=== PATIENT | female | born 1960 | race Caucasian/White ===

== ENCOUNTER 2017-12-17 13:32 | Inpatient (IN) | payer OTHER ==
[~2017-12-17] VITALS: Ht 165.1 cm; Wt 106.1 kg
[2017-12-17 13:35] VITALS: BP 136/73
[2017-12-17] MEDS ORDERED: DOXYCYCLINE 10100 M1 PO (13:40)
[2017-12-17 14:33] LABS: ABSOLUTE EOSINOPHILS 0.1 thou/uL (0.0-0.7); ABSOLUTE LYMPHOCYTES 1.4 thou/uL (0.8-5.3); ABSOLUTE MONOCYTES 0.2 thou/uL (0.0-1.2); ABSOLUTE NEUTROPHILS 3.3 thou/uL (1.6-8.1); BASOPHILS 0.3 %; EOSINOPHILS 1.6 %; HEMATOCRIT 45.6 % (37.0-47.0); HEMOGLOBIN 14.8 gm/dL (12.0-15.0); LYMPHOCYTES 27.5 %; MCH 29.2 pg (26.0-34.0); MCHC 32.6 g/dL (28.0-37.0); MCV 89.8 fL (80.0-100.0); MONOCYTES 4.6 %; MPV 8.5 fl. (7.2-11.1); NUCLEATED RBCS 0 /100WBC; PLATELET COUNT* 211 thou/uL (150-400); RBC 5.07 mil/uL (4.20-5.00); RDW-CV 13.7 % (10.5-14.5)
[2017-12-17 14:42] LABS: ANION GAP 6 mmol/L (7-16); BUN 11 mg/dL (7-18); CALCIUM 9.2 mg/dL (8.5-10.1); CHLORIDE 103 mmol/L (98-107); CO2 30 mmol/L (21-32); CREATININE 0.8 mg/dL (0.6-1.3); GLUCOSE 138 mg/dL (70-99); POTASSIUM 3.4 mmol/L (3.5-5.1); SODIUM 139 mmol/L (136-145)
[2017-12-17 14:54] LABS: ALBUMIN 3.3 g/dL (3.4-5.0); ALKALINE PHOSPHATASE 92 U/L (46-116); NT-PRO BRAIN NAT PEPTIDE 428 pg/mL (<300); SGOT 34 U/L (15-37); SGPT 45 U/L (30-65); TOTAL BILIRUBIN 0.5 mg/dL (<0.1-1.0); TOTAL PROTEIN 7.9 g/dL (6.4-8.2); TROPONIN-I LEVEL <0.06 ng/mL (<0.06)
[2017-12-17 16:02] LABS: INFLUENZA A ANTIGEN None Detected (None Detect); INFLUENZA B ANTIGEN None Detected (None Detect)
[2017-12-17 16:20] VITALS: BP 133/68
[2017-12-17 16:31] LABS: BE -0.1 mmol/L (-2 to +3); HCO3 25.3 mmol/L (22.0-26.0); PCO2 44.2 mmHg (35.0-45.0); PO2 85.6 mmHg (75.0-100.0); pH 7.376 (7.340-7.450)
[2017-12-17] MEDS ORDERED: IBUPROFEN 600600 M1 PO (18:11)
[2017-12-17] MEDS ORDERED: MUCINEX1200 MG PO (18:13)
[2017-12-17] MEDS ORDERED: TYLENOL325 MG PO (18:15)
--- NOTE | 2017-12-17 18:15 | NUR ---
RECEIVED REPORT FROM HEADSTART TEACHER MIKAELA. PT ARRIVED TO UNIT AT 1640 VIA GURNEY AND ER STAFF. PT IS A & O X4 AND ABLE TO COMMUNICATE NEEDS TO STAFF. VS OBTAINED. ASSESSMENT COMPLETE. ADMISSION HISTORY COMPLETE. ADMISSION EDUCATION COMPLETE. PT IS ON 2L O2 NC, SATS 96%. SR BBB ON TELE MONITOR. NON-PRODUCTIVE COUGH, STRESS INCONTINENCE. MEAL TRAY ARRIVED, CONSUMED 50%, STATING THAT JELLO IS PREFERRED TO MEAL. SKIN ASSESSMENT FINDS NO WOUNDS, SKIN INTACT, NO EDEMA. NEEDED ITEMS AND CALL LIGHT WITHIN REACH OF PT. EDUCATION GIVEN AND FALL PROTOCOL SIGNED, PT AGREES TO CALL NURSING STAFF PRIOR TO GETTING OUT OF BED.
[2017-12-17 21:04] VITALS: BP 151/79
[2017-12-17 23:48] VITALS: BP 150/74
[2017-12-18 04:05] VITALS: BP 145/68
--- NOTE | 2017-12-18 04:38 | NUR ---
Pt voiced concerns about interaction with staff member toward beginning of shift, and has requested that she not enter her room again. Pt reports that she is breathing & feeling much better since arrival to ED. Inquired about antibiotics, steroids, and respiratory treatments; and why the antibiotic she was prescribed on Monday did not Pt reports feeling "much better" after receiving IV steroids, respiratory treatments, and IV antibiotics. Inquired about the apparent ineffectiveness of the antibiotic (doxycycline) she was prescribed on Monday by her PCP. At time of note pt asleep. VSS, on 2L O2 per NC. Lt wheezes to ascultation. Will continue to monitor.
[2017-12-18 05:11] LABS: ABSOLUTE BASOPHILS 0.1 thou/uL (0.0-0.2); ABSOLUTE LYMPHOCYTES 0.4 thou/uL (0.8-5.3); ABSOLUTE NEUTROPHILS 2.6 thou/uL (1.6-8.1); BASOPHILS 2.9 %; HEMATOCRIT 39.7 % (37.0-47.0); LYMPHOCYTES 13.6 %; MCH 29.4 pg (26.0-34.0); MCHC 35.4 g/dL (28.0-37.0); MONOCYTES 0.5 %; MPV 7.6 fl. (7.2-11.1); NUCLEATED RBCS 0 /100WBC; PLATELET COUNT* 221 thou/uL (150-400); RBC 4.77 mil/uL (4.20-5.00); RDW-CV 13.1 % (10.5-14.5); WBC 3.2 thou/uL (4.0-11.0)
[2017-12-18 05:38] LABS: MCV 83.2 fL (80.0-100.0)
[2017-12-18 05:46] LABS: CALCIUM 9.1 mg/dL (8.5-10.1); CREATININE 0.6 mg/dL (0.6-1.3)
[2017-12-18 05:51] LABS: POTASSIUM 4.4 mmol/L (3.5-5.1)
--- NOTE | 2017-12-18 07:00 | NUR ---
Pt voiced concern regarding interaction with staff member early in shift. Pt requesting that the staff member not return to her room. Pt reports that her breathing has improved significantly since arrival to ED. Pt inquired about her medications; and informed of antibiotics, steroids, and breathing treatments as well as DVT prevention. Pt reports she did not get much sleep overnight due to interruptions (nursing, RT, and phlebotomy) as well as the sound of doors shutting (e.g. the galley across the lizama from pt's room). VSS. Lt wheezes with ascultation of breath snds. Will continue to monitor.
[2017-12-18 08:00] VITALS: BP 133/73
--- NOTE | 2017-12-18 10:23 | EKG ---
[place] [address] ELECTROCARDIOGRAM REPORT Name: ROXY PENNY Room: [place] [address] ADM IN [facility]#: [id number] Admission: 12/17/17 Attend Phys: Kilo Packer MD Discharge: Date of : 64 Report #: [id number] THIS REPORT FOR: //name// [facility] ED Test Date: 2017-12-17 Test Time: 13:43:31 Pat Name: ROXY PENNY Department: Room: [facility] Gender: F Associate Director Of Biostatistics: Richard BARR : 1960 Requested By: North Enriquez Order Number: [id number] MD: Paco Meier Measurements Intervals [place] Rate: 78 P: 37 MO: 196 QRS: 93 QRSD: 167 T: 55 QT: 399 QTc: 455 Interpretive Statements Sinus rhythm Right bundle branch block No previous ECG available for comparison Electronically Signed On 12-18-2017 10:23:35 CAMPUS COORDINATOR by Paco Meier [email or web address] <ELECTRONICALLY SIGNED> By: Paco Meier MD, [facility] 12/18/17 1023 1343 1343 Paco Meier MD, FACC /EPI
--- NOTE | 2017-12-18 10:51 | NUR ---
PAITNET RESTING IN BED. 2L SUPPLEMENTAL O2 TO MAINTAIN SATURATION. LUNGS DIMINISHED AND WHEEZY. RT ON BOARD. IV ABX INFUSING PER ORDERS. AOX4 AND COORPERATIVE. UP WITH STANDBY ASSISTANCE.
[2017-12-18 12:22] VITALS: BP 123/59
--- NOTE | 2017-12-18 13:49 | NUR ---
MET WITH PT TO DISCUSS HOME SITUATION/DC PLANNING. PT LIVES IN [facility], HER SON WHO JUST GRADUATED FROM [place] IS LIVING WITH HER NOW. 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 USES NO EQUIPMENT AND DENIES DC NEEDS. 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
[2017-12-18 16:00] VITALS: BP 138/76
[2017-12-18 19:45] VITALS: BP 144/85
[2017-12-19] VITALS: BP 134/70
--- NOTE | 2017-12-19 03:15 | NUR ---
ASSUMED CARE OF PT AT 1900. PT IS ALERT AND ORIENTED. VSS. PERRLA. NO COMPLAINTS OF PAIN. PT IS IN SINUS RYTHM WITH A PROLONGED ID INTERVAL. PT IS SLEEPING COMFORTABLY IN BED. RESPIRATIONS ARE EVEN AND NONLABORED. WILL CONTINUE TO MONITER PT.
[2017-12-19 04:00] VITALS: BP 134/53
--- NOTE | 2017-12-19 07:57 | CON ---
[address] [address] CONSULTATION Name: ROXY PENNY Room: [place] [address] ADM IN [facility].R.#: [id number] Admission: 12/17/17 Attend Phys: Kilo Packer MD Discharge: Date of : 64 Report #: [id number] THIS REPORT FOR: //name// CC: Kilo Packer [facility] physician/PCP DATE OF SERVICE: 12/18/2017 ATTENDING PHYSICIAN: Kilo Packer M.D. REASON FOR EVALUATION: Pneumonitis, probably with antecedent influenza. HISTORY OF PRESENT ILLNESS: Chart reviewed, patient examined. This 57-year-old woman with probable COPD, who describes a biphasic illness. She had an illness starting within the last couple of weeks, flu-like symptoms, did have cough which is productive, was evaluated and was found to have negative flu, treated with doxycycline. At some point, she thought she had improved. Only over the course of last 2-3 days prior to admission, had onset of fevers, worsening chest pain and discomfort, progressive shortness of breath, cough, although has still been minimally productive. Blood cultures collected are sterile thus far. MEDICATIONS: Include ceftriaxone, azithromycin, levothyroxine, pantoprazole, methylprednisolone, enoxaparin, ipratropium, albuterol inhaler, p.r.n. analgesics, antiemetics. ALLERGIES: None known. PAST MEDICAL HISTORY: Suspected chronic obstructive pulmonary disease, previous hysterectomy, cholecystectomy, tonsillectomy. SOCIAL HISTORY: Former smoker. No ethanol, no illicit drug use. FAMILY HISTORY: Noncontributory. REVIEW OF SYSTEMS: As above. Denies any significant gastrointestinal-related complaints. He has had some anorexia. PHYSICAL EXAMINATION: GENERAL: She appears ill, not overly toxic. She is not having paroxysms of coughing while I was there at least. VITAL SIGNS: Temperature 98.4, pulse 84, respirations 16, blood pressure 133/73. SKIN: Warm, dry, no rashes. NECK: Supple. LUNGS: Few scattered coarse breath sounds. Nothing for consolidation. HEART: Regular. I do [place] [address] CONSULTATION Name: PENNYROXY Evangelina Room: [address] IN [facility]#: [id number] Admission: 12/17/17 Attend Phys: Kilo Packer MD Discharge: Date of : 64 Report #: [id number] ABDOMEN: Soft, nontender, nondistended. EXTREMITIES: No cyanosis. GENITOURINARY AND RECTAL: Deferred. LABORATORY DATA: As noted above. Blood cultures sterile thus far. Electrolytes: Sodium 143, potassium 4.4, chloride 105, bicarbonate 28, BUN and creatinine 9 and 0.6, glucose of 165. Estimated GFR 104. CBC: White count of 3.2, H and H 14.0 and 39.7, platelets of 221. ABGs: PH 7.376, pCO2 of 44.2, pO2 of 85.6 on 2 liters. Influenza antigen was negative. Liver functions unremarkable. Albumin of 3.3, total protein 7.9. Lactic acid 1.6. Chest x-ray showed left medial upper lobe infiltrate. ASSESSMENT: Pneumonitis, suspect probably secondary to bacterial pneumonitis in the setting of antecedent influenza given her history. We will continue antimicrobial therapy, presume a bacterial pathogen at this point and see how she responds clinically. We will try to obtain a sputum from her, although there will be significant opportunity to wean off support as allowed. <ELECTRONICALLY SIGNED> By: Yonatan Shine MD 12/19/17 0757 1048 1309Josejosé manuel Shine MD /nt
[2017-12-19 08:00] VITALS: BP 124/62
[2017-12-19 11:33] VITALS: BP 126/61
[2017-12-19 12:38] LABS: HEMATOCRIT 43.4 % (37.0-47.0); HEMOGLOBIN 13.9 gm/dL (12.0-15.0); MCH 29.2 pg (26.0-34.0); MPV 8.3 fl. (7.2-11.1); NUCLEATED RBCS 0 /100WBC; PLATELET COUNT* 242 thou/uL (150-400); RBC 4.77 mil/uL (4.20-5.00); RDW-CV 14.3 % (10.5-14.5)
[2017-12-19 12:40] LABS: WBC 11.9 thou/uL (4.0-11.0)
[2017-12-19 13:02] LABS: CREATININE 0.8 mg/dL (0.6-1.3); POTASSIUM 3.3 mmol/L (3.5-5.1)
[2017-12-19 14:04] LABS: ABSOLUTE LYMPHOCYTES 0.7 thou/uL (0.8-5.3); ABSOLUTE MONOCYTES 0.1 thou/uL (0.0-1.2); ABSOLUTE NEUTROPHILS 11.1 thou/uL (1.6-8.1); ATYPICAL LYMPHS 1 %; METAMYELOCYTES 1 %; PLATELET ESTIMATE ADEQUATE
[2017-12-19 15:46] VITALS: BP 139/70
--- NOTE | 2017-12-19 19:15 | NUR ---
PATIENT WAS TRANSFERRED TO ROOM 117 AT 18:45. VITAL SIGNS STABLE AND PAITNET IN NOAPPARENT DISTRES AT HTIS TIME. HOURLY ROUNDING COMPLETED FOR PAITNET SAFETY.
[2017-12-19 21:00] VITALS: BP 137/72
[2017-12-20] VITALS: BP 154/94
[2017-12-20 04:25] VITALS: BP 138/76
[2017-12-20 04:33] LABS: HEMATOCRIT 38.5 % (37.0-47.0); HEMOGLOBIN 13.4 gm/dL (12.0-15.0); MCH 29.3 pg (26.0-34.0); MCHC 34.7 g/dL (28.0-37.0); MPV 8.2 fl. (7.2-11.1); RBC 4.57 mil/uL (4.20-5.00); WBC 10.4 thou/uL (4.0-11.0)
[2017-12-20 04:38] LABS: APTT 23.3 Seconds (25.0-31.3); PROTIME 10.1 Seconds (9.20-11.50)
[2017-12-20 04:50] LABS: CALCIUM 8.7 mg/dL (8.5-10.1); CREATININE 0.7 mg/dL (0.6-1.3); POTASSIUM 4.1 mmol/L (3.5-5.1)
[2017-12-20 04:51] LABS: MCV 84.4 fL (80.0-100.0)
--- NOTE | 2017-12-20 07:59 | NUR ---
PATIENT IS ALERT AND ORIENTED X 4. VSS, ON 2L 02 VIA NASAL CANNULA. PATIENT IS UP AD-NABIL AND STEADY. IV IN LEFT FOREARM-NS @ 100ML/HR. PATIENT INSTRUCTED TO USE CALL LIGHT WHEN NEEDING ASSISTANCE. HOURLY ROUNDS MADE. WILL CONTINUE WITH PLAN OF CARE.
[2017-12-20 08:00] VITALS: BP 123/60
[2017-12-20 16:10] VITALS: BP 134/79
[2017-12-20 20:00] VITALS: BP 161/87
[2017-12-21 04:47] LABS: HEMATOCRIT 40.4 % (37.0-47.0); HEMOGLOBIN 13.8 gm/dL (12.0-15.0); MCH 29.8 pg (26.0-34.0); MCHC 34.1 g/dL (28.0-37.0); MCV 87.3 fL (80.0-100.0); RBC 4.63 mil/uL (4.20-5.00); RDW-CV 13.8 % (10.5-14.5); WBC 8.5 thou/uL (4.0-11.0)
[2017-12-21 05:07] LABS: APTT 23.3 Seconds (25.0-31.3); INR 1.1; PROTIME 10.6 Seconds (9.20-11.50)
[2017-12-21 05:11] LABS: ALBUMIN 2.8 g/dL (3.4-5.0); CALCIUM 8.5 mg/dL (8.5-10.1); CREATININE 0.9 mg/dL (0.6-1.3); POTASSIUM 3.6 mmol/L (3.5-5.1); TOTAL BILIRUBIN 0.2 mg/dL (<0.1-1.0); TOTAL PROTEIN 6.5 g/dL (6.4-8.2)
--- NOTE | 2017-12-21 07:36 | NUR ---
ASSUMED CARE OF PATIENT AT APPROXIMATELY 1999. PATIENT A/O X 4 AND VSS. PATIENT UP AD NABIL. PATIENT REMOVED OXYGEN BY HERSELF, ALTHOUGH OXYGEN SATS ARE WNL AT 93%. 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 PATIENT HAD NO C/O PAIN OR DISCOMFORT OVERNIGHT AND NO PRN MEDICATIONS WERE ADMINISTERED. PATIENT DID REFUSE HER METHYLPREDNISILONE AM ADMINISTRATION D/T FEELINGS OF DISCOMFORT AND UNEASE DURING LAST ADMINISTRATION. HOURLY ROUNDS PERFORMED. NURSING TO FOLLOW-UP NECESSARY. ALL FALL PRECAUTIONS IN PLACE, INCLUDING CALL LIGHT WITHIN REACH. WILL CONTINUE TO MONITOR CLOSELY.
[2017-12-21 08:10] VITALS: BP 147/75
[2017-12-21 12:49] VITALS: BP 147/75
[2017-12-21] MEDS ORDERED: DUONEB 2.5-0.5 M3 ML INH (12:53)
[2017-12-21] MEDS ORDERED: PREDNISONE 20 M20 M1 PO (12:58)
[2017-12-21] MEDS ORDERED: ATIVAN0.5 MG PO (12:59)
[2017-12-21 13:17] VITALS: BP 147/75
--- NOTE | 2017-12-21 13:18 | NUR ---
PATIENT LEFT UNIT BY WHEELCHAIR WITH NURSING STAFF AT 1315. IV DC'D. EDUCATED PATIENT ON DISCHARGE INSTRUCTIONS AND NEW MED SCRIPTS. PATIENT VERBALIZED UNDERSTANDING. ALL BELONGING LEFT WITH PATIENT.
== END 2017-12-21 13:20 | disposition home health service (06) | DRG 177 ==
LOC: M.ERS 13:32 → M.2W 15:14 → M.TBA-ER 15:14 → M.2W 16:31 → M.ORTHSURG 12-19 18:18
PROVIDERS: Internal Medicine; Physician Assistant; ADMIT Internal Medicine
DX: J15.6 Pneumonia due to other Gram-negative bacteria (principal); J96.00 Acute respiratory failure, unspecified whether with hypoxia or hypercapnia; J44.1 Chronic obstructive pulmonary disease with (acute) exacerbation; J44.0 Chronic obstructive pulmonary disease with (acute) lower respiratory infection; I73.9 Peripheral vascular disease, unspecified; Z90.710 Acquired absence of both cervix and uterus; Z90.49 Acquired absence of other specified parts of digestive tract; Z87.891 Personal history of nicotine dependence; Z79.899 Other long term (current) drug therapy; Z23 Encounter for immunization

== ENCOUNTER 2018-09-05 17:53 | Inpatient (IN) | payer OTHER ==
[~2018-09-05] VITALS: Ht 165.1 cm; Wt 131.0 kg
[~2018-09-05 17:53] MED LIST: ATIVAN0.5 MG PO; DOXYCYCLINE 10100 M1 PO; DUONEB 2.5-0.5 M3 ML INH; IBUPROFEN 600600 M1 PO; MUCINEX1200 MG PO; PREDNISONE 20 M20 M1 PO; TYLENOL325 MG PO
[2018-09-05 20:19] LABS: HEMATOCRIT 46.4 % (37.0-47.0); HEMOGLOBIN 14.6 gm/dL (12.0-15.0); MCH 28.9 pg (26.0-34.0); MCHC 31.4 g/dL (28.0-37.0); MCV 91.9 fL (80.0-100.0); MPV 7.9 fl. (7.2-11.1); NUCLEATED RBCS 0 /100WBC; PLATELET COUNT* 356 thou/uL (150-400); RBC 5.05 mil/uL (4.20-5.00); RDW-CV 14.7 % (10.5-14.5); WBC 39.6 thou/uL (4.0-11.0)
[2018-09-05 20:32] LABS: CALCIUM 6.8 mg/dL (8.5-10.1); CREATININE 1.4 mg/dL (0.6-1.3)
[2018-09-05 20:43] LABS: ALBUMIN 2.2 g/dL (3.4-5.0); TOTAL BILIRUBIN 0.4 mg/dL (<0.1-1.0); TOTAL PROTEIN 5.3 g/dL (6.4-8.2)
[2018-09-05 20:50] LABS: TROPONIN-I LEVEL 2.94 ng/mL (<0.06)
[2018-09-05 20:54] LABS: BE -11.7 mmol/L (-2 to +3); HCO3 17.9 mmol/L (22.0-26.0); PO2 73.6 mmHg (75.0-100.0)
[2018-09-05 20:54] LABS: ABSOLUTE EOSINOPHILS 0.4 thou/uL (0.0-0.7); ABSOLUTE LYMPHOCYTES 9.5 thou/uL (0.8-5.3); ABSOLUTE MONOCYTES 1.2 thou/uL (0.0-1.2); ABSOLUTE NEUTROPHILS 28.5 thou/uL (1.6-8.1)
[2018-09-05 20:55] LABS: LARGE PLATELETS OCCASIONAL; PLATELET ESTIMATE ADEQUATE
[2018-09-05 20:56] LABS: PCO2 54.4 mmHg (35.0-45.0); pH 7.134 (7.340-7.450)
[2018-09-05 20:56] LABS: INR 1.8; PROTIME 18.1 Seconds (9.20-11.50)
[2018-09-05 21:05] VITALS: BP 94/43
[2018-09-05 21:40] VITALS: BP 157/100
[2018-09-05 22:14] LABS: MAGNESIUM 2.1 mg/dL (1.8-2.4); PHOSPHORUS* 9.6 mg/dL (2.5-4.9)
[2018-09-05 22:20] VITALS: BP 133/92
[2018-09-05 22:26] LABS: APTT 65.2 Seconds (25.0-31.3)
[2018-09-05 22:40] VITALS: BP 93/78
[2018-09-06] VITALS (43 sets, daily range): BP systolic 109–182; BP diastolic 58–801
[2018-09-06 00:07] LABS: PCO2 73.6 mmHg (35.0-45.0)
[2018-09-06 00:08] LABS: BE -13.4 mmol/L (-2 to +3); PO2 77.2 mmHg (75.0-100.0)
[2018-09-06 03:23] LABS: ABSOLUTE BASOPHILS 0.1 thou/uL (0.0-0.2); ABSOLUTE EOSINOPHILS 0.1 thou/uL (0.0-0.7); ABSOLUTE LYMPHOCYTES 1.5 thou/uL (0.8-5.3); ABSOLUTE MONOCYTES 0.8 thou/uL (0.0-1.2); ABSOLUTE NEUTROPHILS 31.6 thou/uL (1.6-8.1); BASOPHILS 0.4 %; EOSINOPHILS 0.2 %; HEMATOCRIT 46.8 % (37.0-47.0); LYMPHOCYTES 4.5 %; MCH 28.9 pg (26.0-34.0); MCV 90.5 fL (80.0-100.0); MONOCYTES 2.5 %; MPV 7.5 fl. (7.2-11.1); NUCLEATED RBCS 0 /100WBC; PLATELET COUNT* 240 thou/uL (150-400); POLYS 92.4 %; RBC 5.17 mil/uL (4.20-5.00); RDW-CV 14.4 % (10.5-14.5); WBC 34.2 thou/uL (4.0-11.0)
[2018-09-06 03:53] LABS: ALBUMIN 2.3 g/dL (3.4-5.0); CALCIUM 6.5 mg/dL (8.5-10.1); CK-MB MASS 106.6 ng/mL (<0.5-3.6); CREATININE 1.7 mg/dL (0.6-1.3); MAGNESIUM 1.7 mg/dL (1.8-2.4); PHOSPHORUS* 4.3 mg/dL (2.5-4.9); TOTAL BILIRUBIN 0.6 mg/dL (<0.1-1.0); TOTAL PROTEIN 5.5 g/dL (6.4-8.2)
[2018-09-06 03:57] LABS: POTASSIUM 2.9 mmol/L (3.5-5.1); TROPONIN-I LEVEL 6.69 ng/mL (<0.06)
[2018-09-06 05:23] LABS: APTT 32.1 Seconds (25.0-31.3); INR 1.6; PROTIME 16.2 Seconds (9.20-11.50)
[2018-09-06 05:26] LABS: FIBRINOGEN 84 mg/dL (200-340)
[2018-09-06 05:51] LABS: BE -12.9 mmol/L (-2 to +3); HCO3 16.6 mmol/L (22.0-26.0); PO2 82.6 mmHg (75.0-100.0)
[2018-09-06 05:54] LABS: PCO2 51.9 mmHg (35.0-45.0); pH 7.124 (7.340-7.450)
[2018-09-06 08:09] LABS: URINE BILIRUBIN NEGATIVE (Negative); URINE BLOOD 3+ (Negative); URINE CLARITY CLEAR; URINE COLOR YELLOW; URINE GLUCOSE-RANDOM 1+ (Negative); URINE KETONES NEGATIVE (Negative); URINE LEUKOCYTES-REFLEX NEGATIVE (Negative); URINE NITRITE-REFLEX NEGATIVE (Negative); URINE PROTEIN 2+ (Negative); URINE SPECIFIC GRAVITY 1.015 (1.005-1.030); URINE UROBILINOGEN 0.2 E.U./dl (0.2-1.0)
[2018-09-06 08:17] LABS: BACTERIA-REFLEX 1-9 Few /HPF (None Seen); CASTS None Seen /LPF (None Seen); CRYSTALS None Seen /LPF (None Seen); MUCUS 0-3 Light strn/LPF (None Seen); SQUAMOUS 0-3 Few /LPF (0-3); URINE WBC-REFLEX 0-5 Rare /HPF (0-5)
[2018-09-06 08:39] LABS: AMP/METHAMP Negative (Negative); BARBITURATES Negative (Negative); BENZODIAZEPINES Negative (Negative); COCAINE Negative (Negative); METHADONE Negative (Negative); OPIATES Negative (Negative); PCP Negative (Negative); THC Negative (Negative)
[2018-09-06 09:01] LABS: HEMATOCRIT 46.3 % (37.0-47.0); HEMATOCRIT 46.6 % (37.0-47.0); HEMOGLOBIN 15.2 gm/dL (12.0-15.0); MCH 29.4 pg (26.0-34.0); MCHC 32.8 g/dL (28.0-37.0); MCV 89.8 fL (80.0-100.0); MPV 7.5 fl. (7.2-11.1); NUCLEATED RBCS 0 /100WBC; PLATELET COUNT* 189 thou/uL (150-400); RBC 5.15 mil/uL (4.20-5.00); RDW-CV 14.3 % (10.5-14.5); WBC 30.6 thou/uL (4.0-11.0)
[2018-09-06 09:12] LABS: ABSOLUTE LYMPHOCYTES 0.8 thou/uL (0.8-5.3); ABSOLUTE NEUTROPHILS 28.8 thou/uL (1.6-8.1); LYMPHOCYTES 2.6 %; MONOCYTES 3.2 %; POLYS 94.1 %
[2018-09-06 09:31] LABS: CALCIUM 6.8 mg/dL (8.5-10.1); CK-MB MASS 128.9 ng/mL (<0.5-3.6); CREATININE 1.9 mg/dL (0.6-1.3); MAGNESIUM 1.7 mg/dL (1.8-2.4); PHOSPHORUS* 2.3 mg/dL (2.5-4.9); POTASSIUM 3.2 mmol/L (3.5-5.1)
[2018-09-06 09:38] LABS: TROPONIN-I LEVEL 7.35 ng/mL (<0.06)
[2018-09-06 10:19] LABS: APTT 27.7 Seconds (25.0-31.3); FIBRINOGEN 169 mg/dL (200-340); INR 1.3; PROTIME 13.5 Seconds (9.20-11.50)
--- NOTE | 2018-09-06 11:11 | EKG ---
[place] [address] ELECTROCARDIOGRAM REPORT Name: ROXY PENNY Room: [address] ADM IN [facility]#: [id number] Admission: 09/05/18 Attend Phys: Louis Moya Discharge: Date of : 64 Report #: [id number] THIS REPORT FOR: //name// [facility] ED Test Date: 2018-09-05 Test Time: 19:26:42 Pat Name: ROXY PENNY Department: Room: [facility] Gender: F Banquet Prep Cook: ASHLEY : 1960 Requested By: Jade Westbrook Order Number: [id number] MD: Paco Meier Measurements Intervals [place] Rate: 109 P: 256 HI: 180 QRS: 232 QRSD: 167 T: 88 QT: 344 QTc: 464 Interpretive Statements Sinus or ectopic atrial tachycardia Consider dextrocardia RBBB Electronically Signed On 09-06-2018 11:11:10 CDT by Paco Meier [email or web address] <ELECTRONICALLY SIGNED> By: Paco Meier MD, [facility] 09/06/18 1111 25 25 Paco Meier MD, FACC /EPI
--- NOTE | 2018-09-06 13:08 | EKG ---
[place] [address] ELECTROCARDIOGRAM REPORT Name: ROXY PENNY Room: [address] ADM IN .R.#: [id number] Admission: 09/05/18 Attend Phys: Louis Moya Discharge: Date of : 64 Report #: [id number] THIS REPORT FOR: //name// [facility] Test Date: 2018-09-06 Test Time: 11:10:35 Pat Name: ROXY PENNY Department: Room: [address] Gender: F Weigher And Mixer: : 1960 Requested By: Santi Florez Order Number: [id number] Reading MD: Paco Meier Measurements Intervals [place] Rate: 90 P: FL: QRS: 50 QRSD: 110 T: 97 QT: 433 QTc: 530 Interpretive Statements sinus rhythm with isolated and consecutive pvc's Abnormal R-wave progression, early transition Nonspecific T abnormalities, lateral leads Compared to ECG 09/05/2018 19:26:42 pvc's now noted Right bundle-branch block no longer present Electronically Signed On 09-06-2018 13:08:49 CDT by Paco Meier [email or web address] <ELECTRONICALLY SIGNED> By: Paco Meier MD, FAC 09/06/18 1308 1110 1110 Paco Meier MD, [facility] /EPI
[2018-09-06 14:17] LABS: BE -13.7 mmol/L (-2 to +3); HCO3 16.1 mmol/L (22.0-26.0); PO2 86.1 mmHg (75.0-100.0)
[2018-09-06 14:20] LABS: PCO2 52.8 mmHg (35.0-45.0); pH 7.103 (7.340-7.450)
--- NOTE | 2018-09-06 16:23 | 2DMMODE ---
[place] [address] 2 D/M-MODE ECHOCARDIOGRAM Name: ROXY PENNY Room: [address] IN [facility]#: [id number] Admission: 09/05/18 Attend Phys: Roshan Pringle Discharge: Date of : 64 Date of Service: 09/06/18 1622 Report #: [id number] THIS REPORT FOR: //name// APPROVED REPORT Study performed: 09/06/2018 10:46:20 EXAM: Comprehensive 2D, Doppler, and color-flow Echocardiogram Patient Location: In-Patient Room #: 001 Status: routine BSA: 2.22 HR: 84 bpm BP: 152/89 mmHg Rhythm: NSR Other Information Study Quality: Good Indications Cardiac arrest, code ice 2D Dimensions IVSd: 12.54 (7-11mm) LVOT Diam: 20.43 (18-24mm) LVDd: 51.78 mm PWd: 11.19 (7-11mm) Ascending Ao: 30.54 (22-36mm) LVDs: 43.25 (25-40mm) Aortic Root: 29.22 mm Volumes Left Atrial Volume (Systole) LA ESV Index: 16.80 mL/m2 Aortic Valve AoV Peak Andrei.: 1.14 m/s AO Peak Gr.: 5.22 mmHg LVOT Max P.03 mmHg AO Mean Gr.: 2.95 mmHg LVOT Mean P.37 mmHg LVOT Max V: 0.87 m/s AO V2 VTI: 22.67 cm LVOT Mean V: 0.53 m/s XIMENA (VTI): 2.12 cm2 LVOT V1 VTI: 14.64 cm Mitral Valve E/A Ratio: 0.48 MV Decel. Time: 248.63 ms MV E Max Andrei.: 0.45 m/[place] [address] 2 D/M-MODE ECHOCARDIOGRAM Name: ROXY PENNY Room: [address] IN [facility]#: [id number] Admission: 09/05/18 Attend Phys: Roshan Pringle Discharge: Date of : 64 Date of Service: 09/06/18 1622 Report #: [id number] MV PHT: 72.10 ms MVA (PHT): 3.05 cm2 TDI E/Lateral E': 6.43 E/Medial E': 9.00 Medial E' Andrei.: 0.05 m/s Lateral E' Andrei.: 0.07 m/s Pulmonary Valve PV Peak Andrei.: 0.99 m/s PV Peak Gr.: 3.92 mmHg Left Ventricle The left ventricle is normal size. There is moderate global hypokinesis. There is again left ventricular dyssynergy consistent with underlying bundle branch block. There is normal left ventricular wall thickness. Left ventricular systolic function is moderately decreased. LVEF is 35-40%. Grade I - abnormal relaxation pattern. Right Ventricle The right ventricle is normal size. The right ventricular systolic function is normal. Atria The left atrium size is normal. The right atrium size is normal. Aortic Valve The aortic valve is normal in structure. Trace aortic regurgitation. There is no aortic valvular stenosis. Mitral Valve The mitral valve is normal in structure. Mild mitral regurgitation. No evidence of mitral valve stenosis. Tricuspid Valve The tricuspid valve is normal in structure. There is no tricuspid valve regurgitation noted. Pulmonic Valve The pulmonary valve is normal in structure. There is no pulmonic valvular regurgitation. Great Vessels The aortic root is normal in size. [place] [address] 2 D/M-MODE ECHOCARDIOGRAM Name: ZOHAIBROXY Evangelina Room: [address] IN [facility]#: [id number] Admission: 09/05/18 Attend Phys: Roshan Pringle Discharge: Date of : 64 Date of Service: 09/06/18 1622 Report #: [id number] Pericardium There is no pericardial effusion. <Conclusion> The left ventricle is normal size. There is normal left ventricular wall thickness. Left ventricular systolic function is moderately decreased. LVEF is 35-40%. Grade I - abnormal relaxation pattern. There is moderate global hypokinesis. There is again left ventricular dyssynergy consistent with underlying bundle branch block. Mild mitral regurgitation. <ELECTRONICALLY SIGNED> By: Santi Florez MD, FACC 09/06/181621 21 21 Santi Florez MD, FACC /INF
[2018-09-06 21:32] LABS: ABSOLUTE LYMPHOCYTES 0.5 thou/uL (0.8-5.3); ABSOLUTE MONOCYTES 0.6 thou/uL (0.0-1.2); ABSOLUTE NEUTROPHILS 20.5 thou/uL (1.6-8.1); BASOPHILS 0.2 %; HEMATOCRIT 45.1 % (37.0-47.0); HEMOGLOBIN 14.6 gm/dL (12.0-15.0); LYMPHOCYTES 2.5 %; MCH 28.9 pg (26.0-34.0); MCHC 32.4 g/dL (28.0-37.0); MCV 89.1 fL (80.0-100.0); MONOCYTES 2.7 %; MPV 7.7 fl. (7.2-11.1); NUCLEATED RBCS 0 /100WBC; PLATELET COUNT* 146 thou/uL (150-400); POLYS 94.6 %; RBC 5.06 mil/uL (4.20-5.00); RDW-CV 14.3 % (10.5-14.5); WBC 21.7 thou/uL (4.0-11.0)
[2018-09-06 21:52] LABS: APTT 27.9 Seconds (25.0-31.3); CALCIUM 6.5 mg/dL (8.5-10.1); CREATININE 2.2 mg/dL (0.6-1.3); FIBRINOGEN 292 mg/dL (200-340); INR 1.1; MAGNESIUM 1.5 mg/dL (1.8-2.4); PHOSPHORUS* 3.4 mg/dL (2.5-4.9); POTASSIUM 4.1 mmol/L (3.5-5.1); PROTIME 11.6 Seconds (9.20-11.50)
[2018-09-07] VITALS (40 sets, daily range): BP systolic 85–141; BP diastolic 34–76
[2018-09-07 04:33] LABS: ABSOLUTE BASOPHILS 0.4 thou/uL (0.0-0.2); ABSOLUTE LYMPHOCYTES 0.9 thou/uL (0.8-5.3); ABSOLUTE MONOCYTES 0.9 thou/uL (0.0-1.2); ABSOLUTE NEUTROPHILS 28.6 thou/uL (1.6-8.1); BASOPHILS 1.2 %; HEMATOCRIT 44.2 % (37.0-47.0); HEMOGLOBIN 14.6 gm/dL (12.0-15.0); LYMPHOCYTES 3.1 %; MCH 29.1 pg (26.0-34.0); MCV 88.3 fL (80.0-100.0); MPV 7.7 fl. (7.2-11.1); NUCLEATED RBCS 0 /100WBC; PLATELET COUNT* 215 thou/uL (150-400); POLYS 92.7 %; RDW-CV 14.4 % (10.5-14.5); WBC 30.8 thou/uL (4.0-11.0)
[2018-09-07 04:52] LABS: INR 1.1; PROTIME 11.2 Seconds (9.20-11.50)
[2018-09-07 04:56] LABS: PREALBUMIN 19.2 mg/dL (18.0-35.7)
[2018-09-07 05:05] LABS: ALBUMIN 2.1 g/dL (3.4-5.0); CALCIUM 6.2 mg/dL (8.5-10.1); CREATININE 2.5 mg/dL (0.6-1.3); DIRECT BILIRUBIN 0.2 mg/dL (<0.1-0.3); MAGNESIUM 1.9 mg/dL (1.8-2.4); PHOSPHORUS* 4.2 mg/dL (2.5-4.9); TOTAL BILIRUBIN 0.6 mg/dL (<0.1-1.0); TOTAL PROTEIN 5.5 g/dL (6.4-8.2)
[2018-09-07 05:27] LABS: BE -14.1 mmol/L (-2 to +3); HCO3 16.9 mmol/L (22.0-26.0)
[2018-09-07 05:30] LABS: PCO2 60.8 mmHg (35.0-45.0); pH 7.061 (7.340-7.450)
[2018-09-07 05:38] LABS: POTASSIUM 5.1 mmol/L (3.5-5.1)
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
[2018-09-07 10:51] LABS: BE -14.6 mmol/L (-2 to +3); HCO3 16.1 mmol/L (22.0-26.0); PCO2 57.9 mmHg (35.0-45.0); PO2 88.3 mmHg (75.0-100.0); pH 7.063 (7.340-7.450)
--- NOTE | 2018-09-07 13:22 | CON ---
[facility] [address] [place] [address] CONSULTATION Name: ROXY PENNY Room: [address] IN [facility]#: [id number] Admission: 09/05/18 Attend Phys: Louis Moya Discharge: Date of : 64 Report #: [id number] THIS REPORT FOR: //name// CC: DELIA physician/PCP Roshan Pringle HISTORY OF PRESENT ILLNESS: The patient is a 58-year-old female who I was asked to see in neurological consultation after the patient was found in cardiac arrest. The patient was found unconscious in her car with her foot on the gas pedal. The patient had last been 10-20 minutes prior by her friend. She was coded for over 40 minutes prior. The patient is now intubated and unresponsive. The patient lives with her son. The patient had last been seen that morning complaining of a cough and shortness of breath for over a month that had been progressively worse. The patient smokes and has COPD. She takes no medications, but had not been using her inhaler for some time. 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 The patient is now on Code ICE and sedated. The history is obtained solely from the chart. PAST MEDICAL HISTORY: COPD. PAST SURGICAL HISTORY: None. MEDICATIONS AT HOME: None. ALLERGIES: None. PHYSICAL EXAMINATION: VITAL SIGNS: Temperature 32.2, pulse rate 87, respiratory rate 26, blood pressure 153/69, bedside pulse oximetry 98% on the ventilator. NEUROLOGIC: The patient is currently on a cooling protocol and sedation. She has no brainstem reflexes and no spontaneous movements of the extremities. LABORATORY DATA: White blood cell count 30.6, hemoglobin 15.2, hematocrit 46.3, MCV 89.8, platelet count 189,000. INR 1.3, fibrinogen 169. Urinalysis 2+ protein, 3+ blood. Chemistry: Sodium 143, potassium 3.2, chloride 111, carbon dioxide 24, BUN 28, creatinine 1.9, GFR 27, glucose 162. Lactic acid 1.9, calcium 6.8, phosphorus 2.3, magnesium 1.9, AST 460, ALT 309, alkaline phosphatase 196. Troponin 6.52. BNP 4444. Lipase 651. Toxicology negative. Once the patient has been warmed, a CT head, EEG and nuclear medicine cerebral blood flow study will be ordered. However, the patient's prognosis is guarded in part because she may require dialysis and her liver functions are elevated and may continue to be elevated. If they are elevated tomorrow, an ammonia level will be done to make sure the patient does not develop hepatic encephalopathy [place] [address] CONSULTATION Name: ROXY PENNY Evangelina Room: [address] IN [facility]#: [id number] Admission: 09/05/18 Attend Phys: Louis Moya Discharge: Date of : 64 Report #: [id number] I thank you for your kind referral of the patient and will continue to follow her with you. <ELECTRONICALLY SIGNED> By: Elizabeth Bedolla DO 09/07/18 1322 [id number] Bedolla DO /nt
[2018-09-07 13:25] LABS: BE -13.4 mmol/L (-2 to +3); pH 7.114 (7.340-7.450)
[2018-09-07 20:58] LABS: BE -8.3 mmol/L (-2 to +3); HCO3 19.4 mmol/L (22.0-26.0); PCO2 48.7 mmHg (35.0-45.0)
[2018-09-07 21:01] LABS: pH 7.219 (7.340-7.450)
[2018-09-07 21:02] LABS: PO2 128.2 mmHg (75.0-100.0)
[2018-09-07 22:27] LABS: HEMATOCRIT 35.6 % (37.0-47.0); MCH 29.2 pg (26.0-34.0); MCHC 33.3 g/dL (28.0-37.0); MCV 87.6 fL (80.0-100.0); MPV 8.3 fl. (7.2-11.1); RBC 4.06 mil/uL (4.20-5.00); RDW-CV 14.3 % (10.5-14.5); WBC 25.9 thou/uL (4.0-11.0)
[2018-09-07 22:31] LABS: CALCIUM 6.7 mg/dL (8.5-10.1); CREATININE 3.2 mg/dL (0.6-1.3)
[2018-09-07 22:33] LABS: HEMOGLOBIN 11.8 gm/dL (12.0-15.0)
[2018-09-08] VITALS (52 sets, daily range): BP systolic 96–162; BP diastolic 51–100
[2018-09-08 02:28] LABS: HEMATOCRIT 34.3 % (37.0-47.0); HEMOGLOBIN 11.5 gm/dL (12.0-15.0); MCH 29.1 pg (26.0-34.0); MCHC 33.5 g/dL (28.0-37.0); MCV 86.9 fL (80.0-100.0); MPV 8.2 fl. (7.2-11.1); RBC 3.95 mil/uL (4.20-5.00); RDW-CV 14.4 % (10.5-14.5); WBC 25.1 thou/uL (4.0-11.0)
[2018-09-08 02:53] LABS: ALBUMIN 1.8 g/dL (3.4-5.0); CALCIUM 6.8 mg/dL (8.5-10.1); CREATININE 2.9 mg/dL (0.6-1.3); MAGNESIUM 1.5 mg/dL (1.8-2.4); PHOSPHORUS* 3.8 mg/dL (2.5-4.9); POTASSIUM 4.4 mmol/L (3.5-5.1); TOTAL BILIRUBIN 0.6 mg/dL (<0.1-1.0); TOTAL PROTEIN 4.9 g/dL (6.4-8.2)
[2018-09-08 06:34] LABS: BE -3.9 mmol/L (-2 to +3); HCO3 21.6 mmol/L (22.0-26.0); PCO2 40.9 mmHg (35.0-45.0); PO2 100.9 mmHg (75.0-100.0); pH 7.341 (7.340-7.450)
[2018-09-08 06:42] LABS: HEMATOCRIT 30.9 % (37.0-47.0); HEMOGLOBIN 10.5 gm/dL (12.0-15.0); MCH 29.6 pg (26.0-34.0); MCV 87.1 fL (80.0-100.0); MPV 8.4 fl. (7.2-11.1); RBC 3.55 mil/uL (4.20-5.00); RDW-CV 14.4 % (10.5-14.5); WBC 20.6 thou/uL (4.0-11.0)
[2018-09-08 06:45] LABS: CALCIUM 7.3 mg/dL (8.5-10.1); CREATININE 2.9 mg/dL (0.6-1.3); MAGNESIUM 2.1 mg/dL (1.8-2.4); PHOSPHORUS* 3.6 mg/dL (2.5-4.9); POTASSIUM 4.2 mmol/L (3.5-5.1)
--- NOTE | 2018-09-08 10:38 | EEG ---
[address] [address] EEG STUDY REPORT Name: ROXY PENNY Room: [address] IN [facility]#: [id number] Admission: 09/05/18 Attend Phys: Louis Moya Discharge: Date of : 64 Report #: [id number] THIS REPORT FOR: //name// CC: DELIA physician/PCP Roshan Pringle DATE OF SERVICE: 09/07/2018 HISTORY: The patient is a 58-year-old female status post code. The patient had been on code ice and is now warmed to normal body temperature. An EEG is requested for further evaluation. DESCRIPTION: Using the 10/20 electrode system, an electroencephalogram was performed at the bedside at sensitivity of 7, 5 and 3 microvolts. The record consists of low amplitude 4-5 cycle per second activity, which is diffuse and occurs throughout the recording. The majority of this activity occurs over the frontal head regions. At times, some of the activity takes on the appearance of sharp waves or triphasic waves. These triphasic waves occur singly over the frontal head regions. There is no change of state during the recording. Photic stimulation is not performed. No focal abnormalities or epileptiform discharges are noted. IMPRESSION: This is an abnormal adult record consistent with significant diffuse cerebral dysfunction. There is no evidence of subclinical seizure disorder. <ELECTRONICALLY SIGNED> By: Elizabeth Bedolla DO 09/08/18 1038 1459 [id number] Bedolla DO /richard
[2018-09-08 14:30] LABS: HEMATOCRIT 31.2 % (37.0-47.0); HEMOGLOBIN 10.5 gm/dL (12.0-15.0); MCH 29.1 pg (26.0-34.0); MCHC 33.7 g/dL (28.0-37.0); MCV 86.2 fL (80.0-100.0); MPV 8.3 fl. (7.2-11.1); RBC 3.62 mil/uL (4.20-5.00); RDW-CV 14.5 % (10.5-14.5); WBC 19.8 thou/uL (4.0-11.0)
[2018-09-08 14:52] LABS: CALCIUM 7.8 mg/dL (8.5-10.1); CREATININE 2.7 mg/dL (0.6-1.3); MAGNESIUM 2.1 mg/dL (1.8-2.4); PHOSPHORUS* 3.1 mg/dL (2.5-4.9)
[2018-09-08 20:00] LABS: HEMOGLOBIN 9.9 gm/dL (12.0-15.0); MCH 29.4 pg (26.0-34.0); MCHC 34.2 g/dL (28.0-37.0); MPV 8.1 fl. (7.2-11.1); RBC 3.38 mil/uL (4.20-5.00); RDW-CV 14.3 % (10.5-14.5); WBC 20.2 thou/uL (4.0-11.0)
[2018-09-08 20:17] LABS: CALCIUM 7.9 mg/dL (8.5-10.1); CREATININE 2.7 mg/dL (0.6-1.3); MAGNESIUM 2.1 mg/dL (1.8-2.4); POTASSIUM 4.1 mmol/L (3.5-5.1)
[2018-09-09] VITALS (20 sets, daily range): BP systolic 122–163; BP diastolic 55–93
[2018-09-09 00:12] LABS: HEMOGLOBIN 9.7 gm/dL (12.0-15.0); MCH 29.9 pg (26.0-34.0); MCHC 34.8 g/dL (28.0-37.0); MCV 85.9 fL (80.0-100.0); MPV 8.6 fl. (7.2-11.1); RBC 3.26 mil/uL (4.20-5.00); RDW-CV 14.5 % (10.5-14.5); WBC 18.7 thou/uL (4.0-11.0)
[2018-09-09 00:30] LABS: CALCIUM 7.9 mg/dL (8.5-10.1); CREATININE 2.7 mg/dL (0.6-1.3); PHOSPHORUS* 3.1 mg/dL (2.5-4.9); POTASSIUM 4.2 mmol/L (3.5-5.1)
[2018-09-09 04:25] LABS: HEMATOCRIT 28.8 % (37.0-47.0); MCH 29.8 pg (26.0-34.0); MCHC 34.5 g/dL (28.0-37.0); MCV 86.3 fL (80.0-100.0); MPV 8.6 fl. (7.2-11.1); RBC 3.34 mil/uL (4.20-5.00); RDW-CV 14.9 % (10.5-14.5); WBC 20.7 thou/uL (4.0-11.0)
[2018-09-09 04:32] LABS: PROTIME 10.1 Seconds (9.20-11.50)
[2018-09-09 04:35] LABS: ALBUMIN 2.2 g/dL (3.4-5.0); CALCIUM 8.2 mg/dL (8.5-10.1); CREATININE 2.7 mg/dL (0.6-1.3); MAGNESIUM 2.1 mg/dL (1.8-2.4); PHOSPHORUS* 3.1 mg/dL (2.5-4.9); POTASSIUM 4.5 mmol/L (3.5-5.1); TOTAL BILIRUBIN 0.7 mg/dL (<0.1-1.0); TOTAL PROTEIN 5.5 g/dL (6.4-8.2)
[2018-09-09 06:15] LABS: BE 1.2 mmol/L (-2 to +3); HCO3 25.6 mmol/L (22.0-26.0); PCO2 39.5 mmHg (35.0-45.0); PO2 72.6 mmHg (75.0-100.0); pH 7.429 (7.340-7.450)
[2018-09-09 08:34] LABS: HEMATOCRIT 28.1 % (37.0-47.0); HEMOGLOBIN 9.6 gm/dL (12.0-15.0); MCH 29.7 pg (26.0-34.0); MCHC 34.3 g/dL (28.0-37.0); MCV 86.6 fL (80.0-100.0); MPV 8.5 fl. (7.2-11.1); RBC 3.25 mil/uL (4.20-5.00); RDW-CV 14.5 % (10.5-14.5); WBC 20.2 thou/uL (4.0-11.0)
[2018-09-09 08:45] LABS: CALCIUM 8.4 mg/dL (8.5-10.1); CREATININE 2.7 mg/dL (0.6-1.3); MAGNESIUM 2.1 mg/dL (1.8-2.4); POTASSIUM 4.6 mmol/L (3.5-5.1)
[2018-09-09 09:39] LABS: BE 1.1 mmol/L (-2 to +3); HCO3 25.8 mmol/L (22.0-26.0); PO2 70.4 mmHg (75.0-100.0); pH 7.416 (7.340-7.450)
[2018-09-09 12:06] LABS: HEMATOCRIT 28.4 % (37.0-47.0); HEMOGLOBIN 9.7 gm/dL (12.0-15.0); MCH 29.6 pg (26.0-34.0); MCHC 34.2 g/dL (28.0-37.0); MCV 86.3 fL (80.0-100.0); MPV 8.8 fl. (7.2-11.1); RBC 3.29 mil/uL (4.20-5.00); RDW-CV 14.5 % (10.5-14.5); WBC 22.2 thou/uL (4.0-11.0)
[2018-09-09 12:15] LABS: CALCIUM 8.5 mg/dL (8.5-10.1); CREATININE 2.6 mg/dL (0.6-1.3); MAGNESIUM 2.1 mg/dL (1.8-2.4); PHOSPHORUS* 3.1 mg/dL (2.5-4.9); POTASSIUM 4.4 mmol/L (3.5-5.1)
[2018-09-09 16:04] LABS: HEMATOCRIT 26.5 % (37.0-47.0); HEMOGLOBIN 9.4 gm/dL (12.0-15.0); MCH 30.6 pg (26.0-34.0); MCHC 35.2 g/dL (28.0-37.0); MCV 86.7 fL (80.0-100.0); MPV 8.7 fl. (7.2-11.1); RBC 3.06 mil/uL (4.20-5.00); RDW-CV 14.7 % (10.5-14.5); WBC 17.5 thou/uL (4.0-11.0)
--- NOTE | 2018-09-09 16:14 | EEG ---
[address] [address] EEG STUDY REPORT Name: ROXY PENNY Room: [address] IN [facility]#: [id number] Admission: 09/05/18 Attend Phys: Louis Moya Discharge: Date of : 64 Report #: [id number] THIS REPORT FOR: //name// CC: DELIA physician/PCP Roshan Pringle HISTORY: The patient is a 58-year-old female status post code. The patient has been having episodes of jerking, particularly of the upper extremities. In the past 24 hours, she has received approximately 8 mg of lorazepam. An EEG is requested for further evaluation. DESCRIPTION: The record consists of a continuous low amplitude 3-4 cycle per second activity. During the recording, no jerking episodes were noted. There was no change of state during the recording. Low amplitude 20-25 cycles per second activity was seen over the posterior head regions. No focal abnormalities or epileptiform discharges were noted. IMPRESSION: This is an abnormal adult record consistent with severe diffuse cerebral dysfunction. However, the patient has received 8 mg of lorazepam in the past 24 hours and this can have a significant effect on the recording. It should be noted that there is no evidence of subclinical seizures. The episodes of jerking of the extremities are most likely secondary to myoclonus. <ELECTRONICALLY SIGNED> By: Elizabeth Bedolla DO 09/09/18 1614 1048 [id number] Bedolla DO /richard
[2018-09-09 16:37] LABS: CALCIUM 8.5 mg/dL (8.5-10.1); CREATININE 2.5 mg/dL (0.6-1.3); MAGNESIUM 2.2 mg/dL (1.8-2.4); PHOSPHORUS* 2.8 mg/dL (2.5-4.9); POTASSIUM 4.8 mmol/L (3.5-5.1)
[2018-09-09 20:27] LABS: HEMATOCRIT 25.8 % (37.0-47.0); HEMOGLOBIN 8.7 gm/dL (12.0-15.0); MCH 29.2 pg (26.0-34.0); MCHC 33.8 g/dL (28.0-37.0); MCV 86.5 fL (80.0-100.0); MPV 8.6 fl. (7.2-11.1); RBC 2.98 mil/uL (4.20-5.00); RDW-CV 14.7 % (10.5-14.5); WBC 18.2 thou/uL (4.0-11.0)
[2018-09-09 20:40] LABS: CALCIUM 7.6 mg/dL (8.5-10.1); CREATININE 2.3 mg/dL (0.6-1.3); PHOSPHORUS* 3.1 mg/dL (2.5-4.9); POTASSIUM 4.3 mmol/L (3.5-5.1)
[2018-09-10] VITALS (17 sets, daily range): BP systolic 108–169; BP diastolic 56–92
[2018-09-10 10:07] LABS: ANTI-DNA SCREEN <1 IU/mL (0-9); ANTI-RNP <0.2 AI (0.0-0.9)
[2018-09-10 10:25] LABS: BE 0.3 mmol/L (-2 to +3); HCO3 24.4 mmol/L (22.0-26.0); PCO2 37.1 mmHg (35.0-45.0); PO2 89.3 mmHg (75.0-100.0); pH 7.436 (7.340-7.450)
[2018-09-10 16:10] LABS: HEPATITIS B SURFACE AG Negative (Negative)
--- NOTE | 2018-09-14 11:39 | CON ---
[address] [address] CONSULTATION Name: ROXY PENNY Room: [address]#: [id number] Admission: 09/05/18 Attend Phys: Louis Moya Discharge: 09/10/18 Date of : 64 Report #: [id number] THIS REPORT FOR: //name// CC: DELIA physician/PCP Roshan Pringle INDICATION: Out of hospital arrest. HISTORY OF PRESENT ILLNESS: The patient is a 58-year-old female who was found unresponsive in her car after work yesterday evening. She was resuscitated and intubated in the field and brought to the Emergency Room. The patient was initially hypotensive and placed on pressor agents. Chest x-ray shows what appears to be fairly extensive right middle lobe pneumonia and possible pulmonary vascular congestion. Cardiac silhouette is unremarkable. There is no prior cardiac history. The patient does have a history of COPD and is a current smoker. She was treated for pneumonia in November of this year and apparently has been having upper respiratory symptoms for the past 2 weeks. Per the family, she was not having any chest pain, but having some dyspnea. She had been having a cough. No other history is available with the exception of the family states she was also complaining of some knee pain. PAST MEDICAL HISTORY: 1. COPD. 2. Chronic tobacco use. FAMILY HISTORY: Positive for coronary artery disease. The patient's mother has had several coronary stents and carotid vascular disease. The patient's father has a pacemaker. SOCIAL HISTORY: The patient apparently is a current everyday smoker. There was no history of alcohol abuse. REVIEW OF SYSTEMS: Not obtainable. PHYSICAL EXAMINATION: VITAL SIGNS: Blood pressure presently 109/76, pulse 77 and regular. GENERAL: This patient is intubated and unresponsive. HEENT: Head is normocephalic, atraumatic. Pupils fixed. NECK: Without jugular venous distention. CHEST: Coarse breath sounds bilaterally. CARDIAC: Reveals distant S1 and S2. I do not appreciate gallop or murmur. ABDOMEN: Reveals normal bowel sounds. The abdomen is soft, nontender. EXTREMITIES: Shows no edema. Extremities are cool to the touch. Pulses are 1+ and palpable. SKIN: Dry. Chest x-ray is read as showing extensive bilateral [place] [address] CONSULTATION Name: ZOHAIBALISHAROXY Evangelina Room: [address]#: [id number] Admission: 09/05/18 Attend Phys: Louis Moya Discharge: 09/10/18 Date of : 64 Report #: [id number] to be a significant infiltrate in the right middle and possibly upper lobe. Cardiac silhouette is normal in size. LABORATORY DATA: Reviewed. Sodium 143, potassium 3.2, chloride 111, bicarbonate 24, BUN 28, creatinine 1.9, serum glucose 162. LFTs are moderately elevated. Troponin was 2.94, then 6.69 and finally 7.35. NT-proBNP is 4444. Coags are within normal limits. White blood cell count 30.6, hemoglobin 15.2, platelet count of 189,000. EKG on arrival showed sinus tachycardia with right bundle-branch block and diffuse ST segment depression. IMPRESSION AND RECOMMENDATIONS: 1. Out of hospital arrest. Etiology not entirely clear. The patient appears to have for sure a pneumonia and probable sepsis. There is no cardiac history to suggest cardiac arrest, although she did require cardiac resuscitation in the field. 2. Elevated troponins consistent with non-ST elevation myocardial infarction. This is likely due to cardiac strain. Echocardiogram has been ordered and is pending. A repeat EKG and repeat troponin are ordered as well. We will consider further evaluation pending the patient's recovery from her arrest. I do not believe that heparin drip is warranted at this time. 3. Chronic obstructive pulmonary disease. The patient intubated, respiratory following. Pulmonology is following the patient. 4. Chronic tobacco abuse. <ELECTRONICALLY SIGNED> By: Santi Florez MD, FACC 09/14/18 1139 1055 [id number] Florez MD, FACC /nt
--- NOTE | 2018-09-15 11:57 | CON ---
[address] [address] CONSULTATION Name: ROXY PENNY Room: [address]#: [id number] Admission: 09/05/18 Attend Phys: Louis Moya Discharge: 09/10/18 Date of : 64 Report #: [id number] THIS REPORT FOR: //name// CC: DELIA physician/PCP Roshan Pringle DATE OF SERVICE: 09/06/2018 CONSULTING PHYSICIAN: Roshan Pringle DO. REASON FOR CONSULTATION: Acute kidney injury. HISTORY OF PRESENT ILLNESS: A 58-year-old female came in to the Emergency Department in cardiac arrest. She was coded for over 40 minutes. She was initially found in her car unconscious and is currently on a code ice protocol. She is intubated, on vasopressors and has a rise in creatinine, which is why I was asked to see her. On December 21 of this year, her creatinine was 0.9. On admission, it was 1.4. Today, it is 1.9. She has some diminished urine output. REVIEW OF SYSTEMS: Constitutional, psych, heme, eyes, ENT, respiratory, cardiac, GI, , endocrine, all negative except as documented above and as best as can be ascertained from chart review. PAST MEDICAL HISTORY: There is some mention of a history of COPD. HOME MEDICATIONS: None. SOCIAL HISTORY: Positive tobacco. FAMILY HISTORY: Not pertinent in this 58-year-old female. PHYSICAL EXAMINATION: VITAL SIGNS: Blood pressure 109/76, pulse 70. She is on hypothermia protocol. GENERAL: On respiratory support, no distress. EYES: Closed. EARS: Externally normal. CARDIOVASCULAR: Regular rate. LUNGS: Diminished breath sounds. ABDOMEN: Soft. LYMPHATICS: No substantial pitting edema. NEUROLOGIC: Intubated and sedated. LABORATORY DATA: White cell count 30.6, hemoglobin 15.2, platelets 189. Sodium 143, potassium 3.2, chloride 111, bicarbonate 24, BUN 28, creatinine 1.9, glucose 162, calcium 6.8, phosphorus 2.3, magnesium 1.7. Troponin 7.35. [place] [address] CONSULTATION Name: ZOHAIBROXY Evangelina Room: [address]#: [id number] Admission: 09/05/18 Attend Phys: Louis Moya Discharge: 09/10/18 Date of : 64 Report #: [id number] ASSESSMENT: 1. Acute kidney injury with admission creatinine of 1.4. Urine drug screen was negative. Troponin is elevated. This is in the setting of cardiopulmonary arrest. Ibuprofen is also listed as one of her outpatient medications. In 12/21/2017, creatinine was 0.9. 2. Hematuria with 3+ blood on the urine. 3. Proteinuria with 2+ on the dipstick. 4. Hypoalbuminemia with an albumin of 2.3. 5. Leukocytosis with low fibrinogen given cryoprecipitate. 6. Out of hospital cardiopulmonary arrest. 7. Respiratory acidosis with an anion gap metabolic acidosis with a pH of 7.13 on admission. 8. Hypokalemia. 9. Hypocalcemia. 10. Hypomagnesemia. 11. Elevated troponin 7.4. 12. Congestive heart failure by chest x-ray. 13. Increased liver functions and alkaline phosphatase. 14. Elevated lipase. PLAN: 1. Creatinine is up to 1.9 today. She has some diminished urine output, currently on hypothermia protocol with rewarming to begin around 3:00 a.m. 2. Replace potassium and magnesium. She is on protocol. 3. We will order IV calcium. 4. On antibiotics and vasopressors, cautioned vancomycin use. 5. Check renal ultrasound. 6. We will defer workup of elevated liver functions to Internal Medicine. This is also in the setting of cardiopulmonary arrest. There may be some hypoperfusion component to this. 7. I did discuss and update family on the patient's condition and the possibility that she may need CRRT. They are agreeable to proceed if necessary. No acute indications at this time. Electrolytes are being followed serially. 8. She will need a repeat UA at some point to further assess the hematuria and proteinuria. We will send serologic studies. Thank you for requesting my opinion in the care and management of this patient. The patient is critically ill. Thirty-five minutes of patient care time spent. <ELECTRONICALLY SIGNED> By: Antonio Tapia MD 09/15/18 1157 1150 1918Agabe Tapia MD /nt
--- NOTE | 2018-09-21 19:14 | EEG ---
[address] [address] EEG STUDY REPORT Name: ZOHAIBALISHAROXY Evangelina Room: [address]#: [id number] Admission: 09/05/18 Attend Phys: Louis Moya Discharge: 09/10/18 Date of : 64 Report #: [id number] THIS REPORT FOR: //name// CC: DELIA physician/PCP Roshan Pringle DATE OF SERVICE: 09/10/2018 This patient is being evaluated for hypoxic encephalopathy. EEG was done by placing the electrode by standard 10-20 system of electrode placement. Both referential and sequential montages were used for recording. Background activity in this patient's EEG is very low voltage. It is very difficult to tell the frequency, but it may be about 4 Hz and less than 5 microvolt. Photic stimulation is unremarkable. IMPRESSION: This is a severely abnormal electroencephalogram consistent with hypoxic encephalopathy. There may be some low voltage activity present, but that is difficult to tell. <ELECTRONICALLY SIGNED> By: Ernesto Arteaga MD 09/21/18 1914 1401 1525Ernesto Arteaga MD /nt
--- NOTE | 2018-10-03 12:52 | CON ---
[address] [address] CONSULTATION Name: ROXY PENNY Room: [address]#: [id number] Admission: 09/05/18 Attend Phys: Louis Moya Discharge: 09/10/18 Date of : 64 Report #: [id number] THIS REPORT FOR: //name// CC: DELIA physician/PCP Roshan Pringle HISTORY OF PRESENT ILLNESS: This is a 58-year-old female with no significant past medical history who was brought to the ED via EMS in cardiac arrest. The patient had lost pulse and was coded for over 40 minutes prior to return of circulation. The patient was apparently found unconscious with her foot on the gas pedal. The patient was previously seen by her friend about 10 minutes prior to the episode. The patient is sedated and intubated. The history has been obtained from the son who is at her bedside and the patient's mother. Both of them do not report any prior known history of medical disease and the patient takes no long-term medications either. The patient had hysterectomy in the remote past, but otherwise there is no significant past surgical history. She, as a result, has been consulted for evaluation of elevated liver enzymes. There is no prior known history of chronic liver disease, no prior episodes of jaundice, and no history of other autoimmune disorders. PAST MEDICAL HISTORY: As mentioned above, there is no significant known past medical history and the patient is not on any chronic medications. PAST SURGICAL HISTORY: The patient had a hysterectomy in the remote past, but otherwise no other significant past surgical history. SOCIAL HISTORY: The patient smokes half pack a day and has been doing this for over 20 years. There is no history of alcohol or recreational drug use. FAMILY HISTORY: Significant for type 2 diabetes, but otherwise not relevant. REVIEW OF SYSTEMS: Unable to obtain because of the patient's mental status. PHYSICAL EXAMINATION: VITAL SIGNS: Temperature 36.7, pulse rate 111, blood pressure 133/85, pulse ox 97%, and respirations 22. GENERAL: The patient is sedated, intubated, not responding to painful stimuli. HEENT: Pupils are equal, round, and reactive to light and accommodation. Mucous membranes are moist. LUNGS: Bilateral rhonchi present on lung auscultation. CARDIOVASCULAR: Rate and rhythm regular, S1, S2 present. ABDOMEN: Soft. There is no distention, no guarding, and no rigidity. EXTREMITIES: Warm. There is bilateral pitting edema, 2+, in both legs. SKIN: There is no icterus in the sclerae or skin. LABORATORY DATA: Hemoglobin 8.7, hematocrit 25.8, WBC count 18.2, and platelet count 90. Chemistry: Sodium 140, potassium 4.3, BUN 36, creatinine 2.3, [place] [address] CONSULTATION Name: ZOHAIBROXY Room: [address]#: [id number] Admission: 09/05/18 Attend Phys: Louis Moya Discharge: 09/10/18 Date of : 64 Report #: [id number] and ALT 120 and 140, alkaline phosphatase 80. On presentation, the AST was 460 and ALT was 279. Total bilirubin appears to be normal. ASSESSMENT AND PLAN: This is a pleasant 58-year-old female with no significant past medical history, was brought in by EMS after she was found unresponsive and pulseless. The patient had resuscitation performed for over 40 minutes before return of circulation and the gastrointestinal service has been consulted for evaluation of elevated liver enzymes. In all probability, the liver enzyme elevation appears to be related to shock liver. However, at this time, the patient's family is considering withdrawing care because she appears to have significant anoxic brain injury and the likelihood of long-term recovery is quite remote. Therefore, I will not pursue any further evaluation. The gastrointestinal service can be consulted again if any questions remain. More than 30 minutes were spent in reviewing the patient's chart, performing physical examination, obtaining history, and formulating plan of care. <ELECTRONICALLY SIGNED> By: Isaiah Moss MD 10/03/18 1252 1712 [id number] Moss MD /nt
== END 2018-09-10 21:47 | DRG 870 ==
LOC: M.ERS 17:53 → EDBD 17:53 → M.ICU 20:12 → M.TBA-ER 20:12 → M.ICU 20:12
PROVIDERS: Emergency Medicine; Family Medicine; Internal Medicine; Internal Medicine Nephrology; Internal Medicine Pulmonary Disease; ADMIT Internal Medicine
DX: A41.9 Sepsis, unspecified organism (principal); J18.9 Pneumonia, unspecified organism; R65.21 Severe sepsis with septic shock; N17.0 Acute kidney failure with tubular necrosis; K72.00 Acute and subacute hepatic failure without coma; J96.00 Acute respiratory failure, unspecified whether with hypoxia or hypercapnia; G93.1 Anoxic brain damage, not elsewhere classified; I42.9 Cardiomyopathy, unspecified; Z68.42 Body mass index [BMI] 45.0-49.9, adult; I50.1 Left ventricular failure, unspecified; J44.0 Chronic obstructive pulmonary disease with (acute) lower respiratory infection; I46.9 Cardiac arrest, cause unspecified; F17.210 Nicotine dependence, cigarettes, uncomplicated; E83.42 Hypomagnesemia; Z66 Do not resuscitate; E66.01 Morbid (severe) obesity due to excess calories; D64.9 Anemia, unspecified; D69.6 Thrombocytopenia, unspecified; G25.3 Myoclonus; E88.09 Other disorders of plasma-protein metabolism, not elsewhere classified; E87.6 Hypokalemia; E83.51 Hypocalcemia; Z90.710 Acquired absence of both cervix and uterus; Z83.3 Family history of diabetes mellitus; Z90.49 Acquired absence of other specified parts of digestive tract; Z28.82 Immunization not carried out because of caregiver refusal; Z79.2 Long term (current) use of antibiotics; Z79.899 Other long term (current) drug therapy; Z82.49 Family history of ischemic heart disease and other diseases of the circulatory system